=== PATIENT | male | born 1950 | race Caucasian/White ===

== ENCOUNTER → 2023-09-22 10:33 | Outpatient (REF) | payer MEDICARE, SELFPAY | LOC: RAD 10:33 | PROVIDERS: ATTENDING PHYSICIAN Internal Medicine | DX: R13.19 Other dysphagia (principal) | CPT/HCPCS: 74221 ==

== ENCOUNTER → 2024-01-02 06:20 | Day surgery (SDC) | payer MEDICARE, SELFPAY | LOC: GI 06:20 | PROVIDERS: ATTENDING PHYSICIAN Internal Medicine Gastroenterology | DX: Z12.11 Encounter for screening for malignant neoplasm of colon (principal); K64.8 Other hemorrhoids; K55.20 Angiodysplasia of colon without hemorrhage | CPT/HCPCS: G0121 ==